=== PATIENT | female | born 1965 | race African-American/Black ===

== ENCOUNTER 2023-03-10 09:11 | Day surgery (SDC) | payer BC ==
[2023-03-07 13:42] VITALS: BMI 45.1
[2023-03-10] MEDS ORDERED: Ketamine 50 MG/ML (10ML VIAL) ONE (11:53)
[2023-03-10] MEDS ORDERED: fentaNYL PF 100 MCG/2 ML SYRINGE ONE (11:53)
[2023-03-10] MEDS ORDERED: Midazolam HCl 2 mg/2 ml Vial ONE (11:53)
== END 2023-03-10 13:45 | disposition home or self-care (01) ==
LOC: MRI 09:11
PROVIDERS: ATTEND Neurological Surgery
DX: M54.12 Radiculopathy, cervical region (principal); M25.519 Pain in unspecified shoulder; I10 Essential (primary) hypertension; Z86.718 Personal history of other venous thrombosis and embolism; Z79.899 Other long term (current) drug therapy; Z90.710 Acquired absence of both cervix and uterus; Z90.49 Acquired absence of other specified parts of digestive tract
CPT/HCPCS: 72141; J2250